=== PATIENT | female | born 1975 | race Two or more races ===

== ENCOUNTER 2025-02-15 11:00 | Outpatient (RCR) | payer MEDICAID, SELFPAY ==
--- NOTE | 2025-01-24 14:45 | PT.OIERPT ---
PT OP Initial Eval Patient Information Outpatient Physical Therapy Treatment Date: 01/24/25 Visit Reasons: BACK PAIN Medical Diagnosis: Back Pain Treatment Dx #1: Hip Pain Start of Care: 01/24/25 Date of Onset: 6 months ago Smoking Status Smoking Status: Never smoker Initial Assessment Subjective: Pt is a 49 y/o male reports of chronic back and hip pain (7/10) worsening in the last 6 months. According to patient she has been diagnosed with fibromyalgia and ankylosis spondlyitis. Pt has limitation with sitting, standing, walking, chores, self care, balance, and performing recreational activities. Objective: L/S AROM: all motions are 75% end range with pain in all plane Hip PROM: all motions are WFL except IR Hip MMTs: grossly 3/5 Muscle Length: Hs tightness Special Test (+) SLR (+) slump Assessment: Pt demonstrate back pain with mobility deficits leading to difficulty with ADLs. Pt will attempt physical therapy if pain persist Pt will be refer back to provider for further consultation Short Term and Senior Care Goals 1) Increase L/S AROM WFL in 6 wks to be able to perform chores 2) Decrease back pain to 2/10 in 6 wks to be able to perform recreational activities 3) Increase core strength WFL in 6 wks to be able to perform lifting activities 4) Increase hip MMTs grossly 4-/5 in 6 wks to be able to walk more than 30 mins 5) Indep with HEP Treatment Plan 1) Manual Therapy 2) Therapeutic Activities 3) Therapeutic Exercises 4) Modalities (ice, heat) Frequency and Duration: 2 x wk for 6 wks Certification Dates: 01/24/25 to 04/26/25 Procedure Charges OP PT Eval Mod Complex 30 minutes: Yes
--- NOTE | 2025-01-30 14:08 | PT.ODAYNRPT ---
PT Outpatient Daily Note OP Daily Note Outpatient Physical Therapy Treatment Date: 01/30/25 Visit Reasons: BACK PAIN Subjective: Pt reports LBP today. Objective: Please see flow sheet for ther ex list. Assessment: Pt demonstrates poor activity tolerance due to pain response. Plan: Continue with pOC. Length of Time (minutes) of Treatment: 30 Minutes Procedure Charges Therapeutic Exercise 30 minutes: Yes
--- NOTE | 2025-02-01 14:41 | PT.ODAYNRPT ---
PT Outpatient Daily Note OP Daily Note Outpatient Physical Therapy Treatment Date: 02/01/25 Visit Reasons: BACK PAIN Subjective: Pt c/o moderate pain. Objective: Please see flow sheet for ther ex list. Assessment: Pt demonstrates poor activity tolerance due to pain response. Plan: Continue with POC. Length of Time (minutes) of Treatment: 30 Minutes Procedure Charges Therapeutic Exercise 30 minutes: Yes
--- NOTE | 2025-02-06 15:34 | PT.ODAYNRPT ---
PT Outpatient Daily Note OP Daily Note Outpatient Physical Therapy Treatment Date: 02/06/25 Visit Reasons: BACK PAIN Subjective: Pt reports back is worse today, is having more difficult moving today. Objective: Please see flow sheet for ther ex list. Assessment: Pt presents with high pain, regressed interventions to accommodate reported pain. Plan: Continue with POC. Length of Time (minutes) of Treatment: 30 Minutes Procedure Charges Therapeutic Exercise 30 minutes: Yes
--- NOTE | 2025-02-08 10:51 | PT.ODAYNRPT ---
PT Outpatient Daily Note OP Daily Note Outpatient Physical Therapy Treatment Date: 02/08/25 Visit Reasons: BACK PAIN Subjective: Pt reports back continues to be painful, no progress at this time. Objective: Please see flow sheet for ther ex list. Assessment: Attempted STM, pt high TTP on l/s and sacral region. Poor progress with intervention progression at this time due to pt pain response. Plan: Assess response to treatment. Length of Time (minutes) of Treatment: 30 Minutes Procedure Charges Therapeutic Exercise 30 minutes: Yes
--- NOTE | 2025-02-13 13:09 | PT.ODAYNRPT ---
PT Outpatient Daily Note OP Daily Note Outpatient Physical Therapy Treatment Date: 02/13/25 Visit Reasons: BACK PAIN Subjective: Pt reports noticing she can tolerate some activities better than before but pain continues to be present. Objective: Please see flow sheet for ther ex list. Assessment: Slow progress with intervention progression due to pt pain response. Plan: Continue withpOC. Length of Time (minutes) of Treatment: 30 Minutes Procedure Charges Therapeutic Exercise 30 minutes: Yes
--- NOTE | 2025-02-15 11:52 | PT.ODAYNRPT ---
PT Outpatient Daily Note OP Daily Note Outpatient Physical Therapy Treatment Date: 02/15/25 Visit Reasons: BACK PAIN Subjective: Pt's back pain is better and notice some mobility improvement. According to patient she was newly diagnosed with chronic fatigue syndrome. Valley fever is being rule out at the moment. Objective: Please see flow chart for list of ther ex performed Assessment: added more hip stretching to the exercise regimen with good tolerance Plan: Continue with PT Length of Time (minutes) of Treatment: 30 Minutes Procedure Charges Therapeutic Exercise 30 minutes: Yes
== END 2025-02-17 23:59 | disposition home or self-care (01) ==
LOC: CPTX 11:00
PROVIDERS: PCP Nurse Practitioner; Referring Provider Nurse Practitioner; Visit Provider Nurse Practitioner
DX: M54.50 Low back pain, unspecified (principal); M25.559 Pain in unspecified hip; G89.29 Other chronic pain; R26.2 Difficulty in walking, not elsewhere classified; R26.89 Other abnormalities of gait and mobility
CPT/HCPCS: 97110; 97162

== ENCOUNTER 2025-03-08 11:00 | Outpatient (RCR) | payer MEDICAID, SELFPAY ==
--- NOTE | 2025-02-20 12:41 | PT.ODAYNRPT ---
PT Outpatient Daily Note OP Daily Note Outpatient Physical Therapy Treatment Date: 02/20/25 Visit Reasons: Back pain/Hip pain Subjective: Pt's hip and back is feeling better. Pt is moving more with less joint pain. Pt also mention recently her medication has been changed which may also be a factor why she's feelng better. Objective: Please see flow chart for list of ther ex performed Assessment: demonstrate improvement with overall hip and lumbar spine mobility with gait and during supine exercises Plan: Continue with PT Length of Time (minutes) of Treatment: 30 Minutes Procedure Charges Therapeutic Exercise 30 minutes: Yes
--- NOTE | 2025-02-22 10:32 | PTNOTE_ITS ---
PT Outpatient Daily Note OP Daily Note Outpatient Physical Therapy Treatment Date: 02/22/25 Visit Reasons: Back pain/Hip pain Subjective: Pt's back and hip is moving more with less pain. Pt feels that walking is getting easier. 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
--- NOTE | 2025-02-28 10:52 | PT.ODAYNRPT ---
PT Outpatient Daily Note OP Daily Note Outpatient Physical Therapy Treatment Date: 02/28/25 Visit Reasons: Back pain/Hip pain Subjective: Pt reports back has been feeling better since starting PT. Objective: Please see flow sheet for ther ex list. Assessment: Pt presents in clinic with decrease pain in l/s but intervention progression slow due to pt pain response and report of LE symptoms and feet pain. Plan: Continue with POC. Length of Time (minutes) of Treatment: 30 Minutes Procedure Charges Therapeutic Exercise 30 minutes: Yes
--- NOTE | 2025-03-02 10:49 | PTNOTE_ITS ---
PT Outpatient Daily Note OP Daily Note Outpatient Physical Therapy Treatment Date: 03/02/25 Visit Reasons: Back pain/Hip pain Subjective: Pt feels that pelvis is locked on the left side. Pt mentioned [employer]FORMATION [employer] had her stretch her hip flexor on the bed and is unsure if it's related to the stretch. Today Pt's hip and sacrum is hurting more. Objective: Please see flow chart for list of ther ex perfromed Assessment: modified exercises today to more supine hip and pelvis exercise. Pt reports of decrease hip pain post PT session with improved mobility with gait. supine hip flexor was withheld today Plan: Continue with PT Length of Time (minutes) of Treatment: 30 Minutes Procedure Charges Therapeutic Exercise 30 minutes: Yes
--- NOTE | 2025-03-02 10:55 | PT.ODS1RPT ---
PT OP Progress/Discharge Note Date of Service: 03/02/25 Progress Note/DC Note Progress Note/Discharge Note: Progress Note Patient Information Visit Reasons: Back pain/Hip pain Medical Diagnosis: Back Pain Treatment Dx #1: Back Pain Treatment Dx #2: Hip Pain Service Continue Service or Discharge: Continue Service Certification Date Certification Dates: 03/02/25 to 06/02/25 Status Subjective: Pt's back and hip has been feeling much better. Pt still has good and bad days. Pt's bad days are when she has more tasks or ADLs to perform throughout the day. Pt feels that the anti-inflammatory and physical therapy is helping her move better and less stiff. Pt has been able to stand, walk, and perform chores with less limitation. Pt still has difficulty with prolonged standing, lifting, and performing recreational activities. Objective: L/S AROM: all motions are WFL Hip PROM: all motions are WFL except IR Hip MMTs: grossly 3+/5 Active SLE: 75 deg Assessment: Pt is slowly progressing with L/S mobility and hip strength allowing her to resume light ADLs, ambulate, and chores with less limitation. Pt has not meet set goals in therapy and will continue to benefit from physical therapy; thank you for your referrals. Plan: Continue with PT/POC and add 8 sessions (2 x wk for 4 wks)
--- NOTE | 2025-03-06 11:38 | PT.ODAYNRPT ---
PT Outpatient Daily Note OP Daily Note Outpatient Physical Therapy Treatment Date: 03/06/25 Visit Reasons: Back pain/Hip pain Subjective: Pt reports noticing less pain and feels some flexibility improvement. Objective: Please see flow sheet for ther ex list. Assessment: Pt encouraged to continue with HEP while we wait for signature from MD for additional PT visits. Plan: Waiting on signature for additional visit. Length of Time (minutes) of Treatment: 30 Minutes Procedure Charges Therapeutic Exercise 30 minutes: Yes
--- NOTE | 2025-03-08 12:46 | PT.ODAYNRPT ---
PT Outpatient Daily Note OP Daily Note Outpatient Physical Therapy Treatment Date: 03/08/25 Visit Reasons: Back pain/Hip pain Subjective: Pt reports hips are sore and painful today. Objective: Please see flow sheet for ther ex list. Assessment: Slow progress with interventions due to pain response. Plan: Continue with POC. Length of Time (minutes) of Treatment: 30 Minutes Procedure Charges Therapeutic Exercise 30 minutes: Yes
== END 2025-03-19 23:59 | disposition home or self-care (01) ==
LOC: CPTX 11:00
PROVIDERS: PCP Nurse Practitioner; Referring Provider Nurse Practitioner; Visit Provider Nurse Practitioner
DX: M54.50 Low back pain, unspecified (principal); M25.559 Pain in unspecified hip; R26.2 Difficulty in walking, not elsewhere classified; R26.89 Other abnormalities of gait and mobility
CPT/HCPCS: 97110

== ENCOUNTER 2025-04-16 10:30 | Outpatient (RCR) | payer MEDICAID, SELFPAY ==
--- NOTE | 2025-03-20 12:04 | PT.ODAYNRPT ---
PT Outpatient Daily Note OP Daily Note Outpatient Physical Therapy Treatment Date: 03/20/25 Visit Reasons: Back pain/hip pain Subjective: Pt reports back and hip pain have been feeling ok, has been taking it easy for about a week. Objective: Please see flow sheet for ther exlist. Assessment: Pt instructed on functional step up exercise to work on pt being able to manage steps and curbs when ambulating out in community. Plan: Continue with poC. Length of Time (minutes) of Treatment: 30 Minutes Procedure Charges Therapeutic Exercise 30 minutes: Yes
--- NOTE | 2025-03-20 12:55 | PT.ODAYNRPT ---
PT Outpatient Daily Note OP Daily Note Outpatient Physical Therapy Treatment Date: 03/20/25 Visit Reasons: Back pain/hip pain Subjective: Pt reports back pain is doing better, has had a week of from physical therapy. Objective: Please see flow sheet for ther ex list. Assessment: Progressing interventions per pt tolerance. Plan: Continue with poC. Length of Time (minutes) of Treatment: 30 Minutes Procedure Charges Therapeutic Exercise 30 minutes: Yes
--- NOTE | 2025-03-22 10:30 | PT.ODAYNRPT ---
PT Outpatient Daily Note OP Daily Note Outpatient Physical Therapy Treatment Date: 03/22/25 Visit Reasons: Back pain/hip pain Subjective: Pt reports back is doing a little better today. Objective: Please see flow sheet for ther ex list. Assessment: Decrease c/o pain with interventions indicating progress. Pt demonstrates incresase arm swing during ambulation. Plan: Continue with POC. Length of Time (minutes) of Treatment: 30 Minutes Procedure Charges Therapeutic Exercise 30 minutes: Yes
--- NOTE | 2025-04-03 10:17 | PT.ODAYNRPT ---
PT Outpatient Daily Note OP Daily Note Outpatient Physical Therapy Treatment Date: 04/03/25 Visit Reasons: Back pain/hip pain Subjective: Pt reports back is doing ok, some pain present today. Objective: Please see flow sheet for ther ex list. Assessment: Added interventions completed with minimal discomfort. Plan: Continue with pOC. Length of Time (minutes) of Treatment: 30 Minutes Procedure Charges Therapeutic Exercise 30 minutes: Yes
--- NOTE | 2025-04-05 10:12 | PT.ODAYNRPT ---
PT Outpatient Daily Note OP Daily Note Outpatient Physical Therapy Treatment Date: 04/05/25 Visit Reasons: Back pain/hip pain Subjective: Pt reports back felt good after last session, was a little sore from the new exercises but did not last long. Objective: Please see flow sheet for ther ex list. Assessment: Pt presents in clinic with decrease c/o pain allowing for intervention progression. Plan: Continue with pOC. Length of Time (minutes) of Treatment: 30 Minutes Procedure Charges Therapeutic Exercise 30 minutes: Yes
--- NOTE | 2025-04-09 13:58 | PT.ODAYNRPT ---
PT Outpatient Daily Note OP Daily Note Outpatient Physical Therapy Treatment Date: 04/09/25 Visit Reasons: Back pain/hip pain Subjective: Pt's back is sore and tight from camping over the weekend. Pt also did some hiking. Objective: Please see flow chart for list of ther ex performed Assessment: patient encourage to start light recreational activities to keep L/S mobility and resume leisure activities. Pt gave verbal understanding and consent. Pt continues to improve L/S and hip mobility with less pain reported Plan: Continue with PT Length of Time (minutes) of Treatment: 30 Minutes Procedure Charges Therapeutic Exercise 30 minutes: Yes
--- NOTE | 2025-04-11 10:54 | PT.ODAYNRPT ---
PT Outpatient Daily Note OP Daily Note Outpatient Physical Therapy Treatment Date: 04/11/25 Visit Reasons: Back pain/hip pain Subjective: Pt reports LBP is doing better overall but is sore and has some pain in the knees and hips, has good and bad days. Pt mentioned she went camping over the weekend had some pain with waking incline but for the most part she avoided activities that would be strenous for her. Objective: Please see flow sheet for ther ex list. Assessment: SLow progress with interventions, pt continues to c/o knee, hip and LBP. Interventions modified to accommodate pt complaints. Plan: Pt has one visit left. Length of Time (minutes) of Treatment: 30 Minutes Procedure Charges Therapeutic Exercise 30 minutes: Yes
--- NOTE | 2025-04-16 12:49 | PT.ODS1RPT ---
PT OP Progress/Discharge Note Date of Service: 04/16/25 Progress Note/DC Note Progress Note/Discharge Note: Progress Note Patient Information Visit Reasons: Back pain/hip pain Medical Diagnosis: Back Pain Treatment Dx #1: Back Pain Treatment Dx #2: Hip Pain Service Continue Service or Discharge: Continue Service Certification Date Certification Dates: 04/16/25 to 07/17/25 Status Subjective: Pt's back and hip is moving more with less pain. Pt has been able to attend camping trip with family and plans to hike soon. Pt continues to reports of less bad days and more good days lately. Walking, standing, and performing chores are getting easier. Pt recently seen provider and will like her to continue physical therapy since it's helping. Objective: L/S AROM: all motions are WNL Hip PROM: all motions are WFL Hip MMTs: grossly 3+/5 Active SLR: 85 deg Assessment: Pt continues to improve with overall L/S mobility, core strength, and hip strength allowing her to ambulate, perform chores, and recreational activities with less limitation. Pt will continue to benefit from physical therapy to improve overall spinal mobility, core strength, and work on flexibility; thank you for your referrals. Plan: Continue with PT/POC and add 8 sessions (2 x wk for 4 wks) Procedure Charges Therapeutic Exercise 30 minutes: Yes
== END 2025-04-19 23:59 | disposition home or self-care (01) ==
LOC: CPTX 10:30
PROVIDERS: PCP Nurse Practitioner; Referring Provider Nurse Practitioner; Visit Provider Nurse Practitioner
DX: M54.50 Low back pain, unspecified (principal); M25.559 Pain in unspecified hip; G89.29 Other chronic pain
CPT/HCPCS: 97110

== ENCOUNTER 2025-05-16 10:30 | Outpatient (RCR) | payer MEDICAID, SELFPAY ==
--- NOTE | 2025-05-02 11:45 | PT.ODAYNRPT ---
PT Outpatient Daily Note OP Daily Note Outpatient Physical Therapy Treatment Date: 05/02/25 Visit Reasons: back pain/hip pain Subjective: Pt notice subtle mobility improvement where she's able to reach across the body and notice pelvis moving a lot more with walking. Objective: Please see flow chart for list of ther ex performed Assessment: difficulty controlling body blade, however, with practice patient was able to perform correctly with good oscillations. Pt continue to progress with improving bilateral Hs flexibility Plan: Continue with PT Length of Time (minutes) of Treatment: 30 Minutes Procedure Charges Therapeutic Exercise 30 minutes: Yes
--- NOTE | 2025-05-08 11:03 | PT.ODAYNRPT ---
PT Outpatient Daily Note OP Daily Note Outpatient Physical Therapy Treatment Date: 05/08/25 Visit Reasons: back pain/hip pain Subjective: Pt reports back is doing better. Objective: Please see flow sheet for ther ex list. Assessment: Added rows exercise, pt completed with good mechanics no pain. Plan: Please see flow sheet for ther ex list. Length of Time (minutes) of Treatment: 30 Minutes Procedure Charges Therapeutic Exercise 30 minutes: Yes
--- NOTE | 2025-05-10 11:13 | PT.ODAYNRPT ---
PT Outpatient Daily Note OP Daily Note Outpatient Physical Therapy Treatment Date: 05/10/25 Visit Reasons: back pain/hip pain Subjective: Pt reports progress with LBP. Objective: Please see flow sheet for ther ex list. Assessment: Pt instructed on QL stretch exercise, p modified hand placement to accommodate secondary L shoulder pain. Plan: Continue with poC. Length of Time (minutes) of Treatment: 30 Minutes Procedure Charges Therapeutic Exercise 30 minutes: Yes
--- NOTE | 2025-05-14 12:09 | PT.ODAYNRPT ---
PT Outpatient Daily Note OP Daily Note Outpatient Physical Therapy Treatment Date: 05/14/25 Visit Reasons: back pain/hip pain Subjective: Pt can now feel her shoulders now which is a good sign. Pt feels better and notice less back/hip pain lately. Objective: Please see flow chart for list of ther ex performed Assessment: added wall plank today to increase TrA engagement; after the 1sr rep Pt had difficulty maintaining position with 2nd rep due to fatigue Plan: Continue with PT Length of Time (minutes) of Treatment: 30 Minutes Procedure Charges Therapeutic Exercise 30 minutes: Yes
--- NOTE | 2025-05-16 10:40 | PT.ODAYNRPT ---
PT Outpatient Daily Note OP Daily Note Outpatient Physical Therapy Treatment Date: 05/16/25 Visit Reasons: back pain/hip pain Subjective: Pt feels more equal now and is not compensating as much. Pt notice HHR is helping her with rotational movement. Objective: Please see flow chart for list of ther ex performed Assessment: added wall side planks to the exercise program; patient had difficulty maintain position on the left side due to shoulder pain from pressure. The exercise modified to where patient is more upright to decrease shoulder pressure with improved tolerance and ability to maintain position for 1 min Plan: Continue with PT Length of Time (minutes) of Treatment: 30 Minutes Procedure Charges Therapeutic Exercise 30 minutes: Yes
== END 2025-05-20 23:59 | disposition home or self-care (01) ==
LOC: CPTX 10:30
PROVIDERS: PCP Nurse Practitioner; Referring Provider Nurse Practitioner; Visit Provider Nurse Practitioner
DX: M54.9 Dorsalgia, unspecified (principal); M25.559 Pain in unspecified hip; G89.29 Other chronic pain; R26.2 Difficulty in walking, not elsewhere classified; R26.89 Other abnormalities of gait and mobility
CPT/HCPCS: 97110

== ENCOUNTER 2025-06-04 11:00 | Outpatient (RCR) | payer MEDICAID, SELFPAY ==
--- NOTE | 2025-05-29 11:43 | PT.ODAYNRPT ---
PT Outpatient Daily Note OP Daily Note Outpatient Physical Therapy Treatment Date: 05/29/25 Visit Reasons: back pain Subjective: Pt mentioned that her back and hip continues to move better with less pain. Pt further notice improve shoulder strength. Objective: Please see flow chart for list of ther ex performed Assessment: able to progress patient to single arm rows + rotation and de-rotation due to improved arm strength leading to better form while performing the exercises Plan: Continue with PT Length of Time (minutes) of Treatment: 30 Minutes Procedure Charges Therapeutic Exercise 30 minutes: Yes
--- NOTE | 2025-05-31 13:32 | PT.ODAYNRPT ---
PT Outpatient Daily Note OP Daily Note Outpatient Physical Therapy Treatment Date: 05/31/25 Visit Reasons: back pain Subjective: Pt reports back has been feeling better and content to share that therapy has also helped her shoulder. Objective: Please see flow sheet for ther ex list. Assessment: Pt demonstrates improved static standing posture with standing hip abduction and extension exercise avoiding trunk movements. Plan: Continue with pOC. Length of Time (minutes) of Treatment: 30 Minutes Procedure Charges Therapeutic Exercise 30 minutes: Yes
--- NOTE | 2025-06-04 12:09 | PT.ODS1RPT ---
PT OP Progress/Discharge Note Date of Service: 06/04/25 Progress Note/DC Note Progress Note/Discharge Note: DC Note Patient Information Visit Reasons: back pain Medical Diagnosis: Back Pain Treatment Dx #1: Back Pain Treatment Dx #2: Hip Pain Service Discharge Date: 06/04/25 Status Subjective: Pt's back and hip pain is much better. Pt has been able to stand, walk, perform chores, reach, and perform ADLs with less limitation. At this time Pt feels comfortable to be release for her back and hip with exercises to continue at home. Objective: L/S AROM: all motions are WNL Hip PROM: all motions are WNL Hip MMTs: grossly 4-/5 Active SLR: 90 deg Assessment: Pt demonstrate improvement with L/S mobility and hip strength allowing her to perform ADLs, ambulate, and recreational activities with less limitation. Pt has met goals set in therapy and will no longer benefit from physical therapy. Pt was instructed on HEP last session and educated to continue exercises to maintain overall mobility. Pt performed all exercises safely, thank you for your referrals. Plan: D/C home with HEP and follow up with MD ALCALA Procedure Charges Therapeutic Exercise 30 minutes: Yes
== END 2025-06-19 23:59 | disposition home or self-care (01) ==
LOC: CPTX 11:00
PROVIDERS: PCP Nurse Practitioner; Referring Provider Nurse Practitioner; Visit Provider Nurse Practitioner
DX: M54.50 Low back pain, unspecified (principal); M25.559 Pain in unspecified hip; R26.2 Difficulty in walking, not elsewhere classified; R26.89 Other abnormalities of gait and mobility
CPT/HCPCS: 97110